=== PATIENT | male | born 1995 | race African-American/Black ===

== ENCOUNTER 2019-02-04 21:59 | Emergency (ER) | payer MEDICAID, OTHER ==
[~2019-02-04] VITALS: Ht 175.3 cm; Wt 45.1 kg
[2019-02-04 22:15] VITALS: BP 112/65; PULSE 79; RESP 20; Ht 175.3 cm; Wt 45.1 kg
[2019-02-04] MEDS ORDERED: HYDROCODONE/APAP (5/325) TAB PO ONE (23:00)
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
[2019-02-05] MEDS ORDERED: AMOX1TAB10 PO (00:10)
[2019-02-05] MEDS ORDERED: ACET500C5 PO (00:10)
== END 2019-02-05 00:19 | disposition home or self-care (01) ==
LOC: FTE 21:59
DX: S00.81XA Abrasion of other part of head, initial encounter (principal); R51 Headache; Y04.8XXA Assault by other bodily force, initial encounter
CPT/HCPCS: 70450; 70486; Z7502; Z7610